=== PATIENT | female | born 1950 | race Caucasian/White ===

== ENCOUNTER 2022-10-14 10:59 | Inpatient (IN) | payer MEDICARE, OTHER ==
[~2022-10-14] VITALS: Ht 152.4 cm; Wt 61.5 kg
[2022-10-14] VITALS (19 sets, daily range): BP systolic 109–135; BP diastolic 20–89; PULSE 70–79; RESP 18; TEMP 98.6
[~2022-10-14 10:59] MED LIST: SODIUM CHLORIDE 0.9% 1,000 ML ONE
[2022-10-14] MEDS ORDERED: DIAZEPAM 5 MG TABLET ONE (11:21)
[2022-10-14] MEDS ORDERED: ASPIRIN 81 MG CHEWABLE TABLET ONE (11:21)
[2022-10-14] MEDS ORDERED: DiphenhydrAMINE HCL 50 MG CAPSULE ONE (11:21)
[2022-10-14] MEDS ORDERED: SODIUM CHLORIDE 0.9% 1,000 ML IV ONE (11:30)
[2022-10-14 11:32] LABS: BASOPHILS % (AUTO) 0.6 % (0.0-2.0); EOSINOPHILS % (AUTO) 1.8 % (1.0-6.0); HEMATOCRIT 30.4 % (36-46); LYMPHOCYTES # (AUTO) 2.2 K/uL (1.0-4.8); LYMPHOCYTES % (AUTO) 28.5 % (22.0-44.0); MEAN CORPUSCULAR HEMOGLOBIN 32.1 pg (26.0-34.0); MEAN CORPUSCULAR VOLUME 97 fL (80-100); MONOCYTES # (AUTO) 0.5 K/uL (0.1-1.0); MONOCYTES % (AUTO) 6.7 % (2.0-9.0); NEUTROPHILS # (AUTO) 4.9 K/uL (1.8-7.7); NEUTROPHILS % (AUTO) 62.4 % (40.0-70.0); PLATELET COUNT (AUTO) 181 K/uL (150-450); RED BLOOD CELL COUNT(AUTO) 3.12 MIL/uL (4.00-5.20); RED CELL DISTRIBUTION WIDTH 14.4 % (11.5-14.5)
[2022-10-14 11:58] LABS: CALCIUM, TOTAL 9.4 mg/dL (8.8-10.5); CREATININE 1.18 mg/dL (0.60-1.30); POTASSIUM 4.3 mmol/L (3.5-5.1)
[2022-10-14] MEDS ORDERED: METF-446 PO (12:10)
[2022-10-14] MEDS ORDERED: EZET10TA57 PO (12:10)
[2022-10-14] MEDS ORDERED: FERR325T23 PO (12:10)
[2022-10-14] MEDS ORDERED: ALEN35TA41 PO (12:10)
[2022-10-14] MEDS ORDERED: SITA100 PO (12:10)
[2022-10-14] MEDS ORDERED: LORA-997 PO (12:10)
[2022-10-14] MEDS ORDERED: ATOR-2 PO (12:10)
[2022-10-14] MEDS ORDERED: TICA60TA PO (12:10)
[2022-10-14] MEDS ORDERED: MONT-40 PO (12:10)
[2022-10-14] MEDS ORDERED: CARV25TA32 PO (12:10)
[2022-10-14] MEDS ORDERED: ASPI-1444 PO (12:10)
[2022-10-14] MEDS ORDERED: FAMO40TA7 PO (12:10)
[2022-10-14] MEDS ORDERED: OS500 PO (12:10)
[2022-10-14] MEDS ORDERED: LISI40TA9 PO (12:10)
[2022-10-14] MEDS ORDERED: EMPA25TA3 PO (12:10)
[2022-10-14] MEDS ORDERED: DiphenhydrAMINE HCL 50 MG CAPSULE PO ONE (13:30)
[2022-10-14] MEDS ORDERED: DIAZEPAM 5 MG TABLET PO ONE (13:30)
[2022-10-14] MEDS ORDERED: ASPIRIN 81 MG CHEWABLE TABLET PO ONE (13:30)
[2022-10-14] MEDS ORDERED: HEPARIN SODIUM 1000 UNITS/NS 1,000 ML ONE (13:50)
[2022-10-14] MEDS ORDERED: IOHEXOL 300 MG/ML 100 ML VIAL ONE (13:50)
[2022-10-14] MEDS ORDERED: LIDOCAINE/PF 1% 30 ML VIAL ONE (13:50)
[2022-10-14] MEDS ORDERED: SODIUM BICARBONATE 50 MEQ/50 ML VIAL ONE (13:50)
[2022-10-14] MEDS ORDERED: FentaNYL CITRATE PF 100 MCG/2 ML VIAL ONE (14:36)
[2022-10-14] MEDS ORDERED: MIDAZOLAM HCL 2 MG/2 ML VIAL ONE (14:37)
[2022-10-14] MEDS ORDERED: LIDOCAINE 1% 30 ML/SOD BICARB 8.4% 4 ML SQ ONE (14:45)
[2022-10-14] MEDS ORDERED: MIDAZOLAM HCL 2 MG/2 ML VIAL IVP ONE (14:45)
[2022-10-14] MEDS ORDERED: FentaNYL CITRATE PF 100 MCG/2 ML VIAL IVP ONE (14:45)
[2022-10-14] MEDS ORDERED: HEPARIN SODIUM 1000 UNITS/NS 1,000 ML IARTER ONE (14:45)
[2022-10-14] MEDS ORDERED: IOHEXOL 300 MG/ML 100 ML VIAL IARTER ONE ×2 (14:45→15:00)
[2022-10-14] MEDS ORDERED: HydrALAZINE HCL 20 MG/ML VIAL ONE (14:46)
[2022-10-14] MEDS ORDERED: SEMA14TA2 PO (14:56)
[2022-10-14] MEDS ORDERED: CHOL200059 PO (14:56)
[2022-10-14] MEDS ORDERED: CALC260T16 PO (14:56)
[2022-10-14] MEDS ORDERED: HEPARIN SODIUM,PORCINE 1,000 UNITS/ML 10 ML VIAL IVP ONE (15:00)
[2022-10-14] MEDS ORDERED: TICAGRELOR 90 MG TABLET PO ONE (15:00)
[2022-10-14] MEDS ORDERED: HydrALAZINE HCL 20 MG/ML VIAL IVP ONE (15:00)
[2022-10-14] MEDS ORDERED: ACETAMINOPHEN 325 MG TABLET PO PRN (16:30)
[2022-10-14] MEDS ORDERED: INSULIN LISPRO 100 UNITS/ML SQ PRN (16:30)
[2022-10-14] MEDS ORDERED: DEXTROSE 50%-WATER 25 GM/50 ML SYRINGE IVP PRN (16:30)
[2022-10-14] MEDS ORDERED: ONDANSETRON HCL 4 MG/2 ML VIAL IVP PRN (16:30)
[2022-10-14] MEDS: CARVEDILOL 6.25 MG TABLET PO SCH (21:33)
[2022-10-14] MEDS: FAMOTIDINE 20 MG TABLET PO SCH (21:33)
[2022-10-14] MEDS: DOCUSATE SODIUM 100 MG CAPSULE PO SCH (21:33)
[2022-10-15 02:01] LABS: GLUCOMETER DEV NAME(LOC) 5S.1B
[2022-10-15 05:44] VITALS: BP 127/55; PULSE 70; RESP 18; TEMP 98.2
[2022-10-15 07:38] VITALS: BP 142/68; PULSE 72; RESP 19; TEMP 98.4
[2022-10-15 07:43] LABS: CREATININE 0.94 mg/dL (0.60-1.30); POTASSIUM 4.5 mmol/L (3.5-5.1)
[2022-10-15] MEDS: CARVEDILOL 6.25 MG TABLET PO SCH (08:52)
[2022-10-15] MEDS: FAMOTIDINE 20 MG TABLET PO SCH (08:52)
[2022-10-15] MEDS: DOCUSATE SODIUM 100 MG CAPSULE PO SCH (08:52)
[2022-10-15] MEDS ORDERED: ASPIRIN 81 MG CHEWABLE TABLET PO SCH (09:00)
[2022-10-15] MEDS ORDERED: TICAGRELOR 90 MG TABLET PO SCH (09:00)
[2022-10-15] MEDS ORDERED: ATORVASTATIN CALCIUM 40 MG TABLET PO SCH (09:00)
[2022-10-15 11:45] VITALS: BP 130/52; PULSE 70; RESP 19; TEMP 98
[2022-10-15 11:47] LABS: BASOPHILS % (AUTO) 0.5 % (0.0-2.0); EOSINOPHILS % (AUTO) 1.7 % (1.0-6.0); HEMATOCRIT 28.8 % (36-46); HEMOGLOBIN 9.1 g/dL (12.0-16.0); LYMPHOCYTES # (AUTO) 1.7 K/uL (1.0-4.8); LYMPHOCYTES % (AUTO) 21.7 % (22.0-44.0); MEAN CORPUSCULAR HEMOGLOBIN 30.9 pg (26.0-34.0); MEAN CORPUSCULAR HGB CONC 31.6 G/dL (31.0-37.0); MEAN CORPUSCULAR VOLUME 98 fL (80-100); MONOCYTES # (AUTO) 0.7 K/uL (0.1-1.0); MONOCYTES % (AUTO) 8.5 % (2.0-9.0); NEUTROPHILS # (AUTO) 5.3 K/uL (1.8-7.7); NEUTROPHILS % (AUTO) 67.6 % (40.0-70.0); PLATELET COUNT (AUTO) 165 K/uL (150-450); RED BLOOD CELL COUNT(AUTO) 2.94 MIL/uL (4.00-5.20); RED CELL DISTRIBUTION WIDTH 14.8 % (11.5-14.5)
[2022-10-15 15:14] LABS: BASOPHILS % (AUTO) 0.5 % (0.0-2.0); EOSINOPHILS % (AUTO) 1.5 % (1.0-6.0); HEMATOCRIT 28.7 % (36-46); HEMOGLOBIN 9.5 g/dL (12.0-16.0); LYMPHOCYTES # (AUTO) 1.8 K/uL (1.0-4.8); LYMPHOCYTES % (AUTO) 19.6 % (22.0-44.0); MEAN CORPUSCULAR HEMOGLOBIN 31.8 pg (26.0-34.0); MEAN CORPUSCULAR HGB CONC 33.1 G/dL (31.0-37.0); MEAN CORPUSCULAR VOLUME 96 fL (80-100); MONOCYTES # (AUTO) 0.8 K/uL (0.1-1.0); MONOCYTES % (AUTO) 9.4 % (2.0-9.0); NEUTROPHILS # (AUTO) 6.2 K/uL (1.8-7.7); PLATELET COUNT (AUTO) 164 K/uL (150-450); RED BLOOD CELL COUNT(AUTO) 2.98 MIL/uL (4.00-5.20); RED CELL DISTRIBUTION WIDTH 14.7 % (11.5-14.5)
[2022-10-15 15:55] VITALS: BP 122/52; PULSE 79; RESP 19; TEMP 98.5
[2022-10-15 18:37] LABS: GLUCOMETER DEV NAME(LOC) 5N.2C
[2022-10-15 18:37] LABS: GLUCOMETER DEV NAME(LOC) 5N.2C
== END 2022-10-15 14:17 | disposition home or self-care (01) | DRG 247 ==
LOC: CATHLAB 10:59 → 5S 19:15
PROVIDERS: ADMIT Internal Medicine Interventional Cardiology; ATTEND Internal Medicine Interventional Cardiology
PROC: 027034Z Dilation of Coronary Artery, One Artery with Drug-eluting Intraluminal Device, Percutaneous Approach (ICD-10-PCS; principal; 2022-10-14)
PROC: 4A023N7 Measurement of Cardiac Sampling and Pressure, Left Heart, Percutaneous Approach (ICD-10-PCS; 2022-10-14)
PROC: B2111ZZ Fluoroscopy of Multiple Coronary Arteries using Low Osmolar Contrast (ICD-10-PCS; 2022-10-14)
PROC: B41F1ZZ Fluoroscopy of Right Lower Extremity Arteries using Low Osmolar Contrast (ICD-10-PCS; 2022-10-14)
DX: I25.119 Atherosclerotic heart disease of native coronary artery with unspecified angina pectoris (principal); E11.9 Type 2 diabetes mellitus without complications; I10 Essential (primary) hypertension; E78.5 Hyperlipidemia, unspecified; Z95.5 Presence of coronary angioplasty implant and graft; Z83.3 Family history of diabetes mellitus; Z82.49 Family history of ischemic heart disease and other diseases of the circulatory system; Z79.899 Other long term (current) drug therapy; Z79.82 Long term (current) use of aspirin
CPT/HCPCS: 80048; 82962; 85025; 92921; 92928; 93005; J0360; J1644; J2250; J3010; J3490; J7030; Q9967; 36415-L1; 36415-TC